=== PATIENT | male | born 1970 | race Caucasian/White ===

== ENCOUNTER 2024-09-07 23:50 | Inpatient (IN) | payer MEDICAID, SELFPAY ==
[2024-09-07 23:50] VITALS: BMI 19.2
[2024-09-08] VITALS (39 sets, daily range): BP systolic 112–158; BP diastolic 80–119; PULSE 77–127; RESP 12–98; TEMP 36.2–36.8; O2SAT 90–100
--- NOTE | 2024-09-08 00:13 | XR_ITS ---
Examination: PA chest single view Technique: Upright PA chest single view Exam date and time: September 08, 2024 1238 hrs. Indications: Shortness of breath today. Findings: Significant hyperexpansion Normal heart size Mild accentuation of bronchovascular markings Prominent central pulmonary arteries. No lobar pneumonia Impression: COPD Pulmonary artery hypertension. No lobar pneumonia
--- NOTE | 2024-09-08 00:13 | PD.EDRME ---
Rapid Medical Screening Exam RME Arrival date/time: 09/07/24 23:50 53M with history of smoking and HTN presents to ED with 1 day of CP and SOB. Chief Complaint: Chest Pain Vital signs: Vital Signs Temperature 98.3 F 09/08/24 00:07 Pulse Rate 110 H 09/08/24 00:07 Respiratory Rate 21 H 09/08/24 00:07 Blood Pressure 117/83 09/08/24 00:07 Pulse Oximetry (%) 94 L 09/08/24 00:07 Oxygen Delivery Method Room Air 09/08/24 00:07
[2024-09-08 00:37] LABS: Basophils % (Auto) 0 % (0-2.5); Eosinophils % (Auto) 0 % (0-10); Hematocrit 38.6 % (41.0-53.0); Hemoglobin 13.9 g/dL (13.5-16.0); Immature Granulocytes % (Auto) 0 % (0-0); Immature Granulocytes Auto 0.02 Thou/mm3 (0.00-0.00); Lymphocytes # (Auto) 2.1 Thou/mm3 (1.0-4.8); Lymphocytes % (Auto) 20 % (10-50); Mean Corpuscular Hemoglobin 29.5 pg (25.0-35.0); Mean Corpuscular Volume 82 fL (80-100); Monocytes % (Auto) 9 % (0-12); Neutrophils # (Auto) 7.6 Thou/mm3 (1.8-7.7); Neutrophils % (Auto) 71 % (37-80); Nucleated Red Blood Cell % 0 /100 WBC (0); Platelet Count 304 Thou/mm3 (140-440); RDW Standard Deviation 38.5 fL (35.1-43.9); Red Blood Count 4.71 Miln/mm3 (4.50-5.90); White Blood Count 10.7 Thou/mm3 (3.8-10.6)
[2024-09-08 01:01] LABS: Alanine Aminotransferase 24 U/L (10-49); Albumin, Serum 4.4 gm/dL (3.5-5.0); Albumin/Globulin Ratio 1.6 (1.2-2.2); Alkaline Phosphatase 93 U/L (46-116); Anion Gap 8 (7-16); Aspartate Amino Transferase 42 U/L (0-34); BUN/Creatinine Ratio 6 Ratio (12-20); Bilirubin,Total 0.4 mg/dL (0.3-1.2); Blood Urea Nitrogen < 5 mg/dL (9-23); Calcium 9.5 mg/dL (8.3-10.6); Calcium (Corrected) 9.5 mg/dL (8.5-10.1); Carbon Dioxide 28.7 mMol/L (20.0-31.0); Chloride 100 mMol/L (98-107); Creatinine (Component) 0.9 mg/dL (0.6-1.3); Estimated Creatinine Clearance 79.2 mL/min (>60); Globulin 2.7 gm/dL (2.3-3.5); Glucose 95 mg/dL (74-106); Magnesium 1.8 mg/dL (1.6-2.6); Osmolality,Calculated 271 (275-295); Sodium 137 mMol/L (136-145); Total Protein 7.1 gm/dL (5.7-8.2); Troponin I < 0.020 ng/mL (0.0-0.045); eGFR > 60 See Note
--- NOTE | 2024-09-08 01:06 | EDNOTE_ITS ---
ED Chest Pain RME/HPI General Chief Complaint: Chest Pain Stated Complaint: CHEST PAIN Time Seen by Provider: 09/08/24 01:04 Source: patient Arrival date/time: 09/07/24 23:50 Mode of arrival: ambulatory Limitations: no limitations RME / HPI RME / HPI narrative: 09/07/24 23:50 53M with history of smoking and HTN presents to ED with 1 day of CP and SOB. DR GOMEZ MAIN ED EVALUATION: 53-year-old male with a history of COPD, hypertension, tobacco and marijuana smoking, and a past history of skin cancer and melena who presented to the ER with chest pain. He describes the pain as heavy, pressure-like sensation, stating it feels like a person is standing on top of his chest with hot boots. He denies experiencing similar episodes in the past but reports shortness of breath at rest and with exertion. Over the past two months, the patient has noticed progressively worsening shortness of breath, which has significantly impacted his activity level. He, he reports flu-like symptoms that began one week ago, including fever, chills, cough, and voice loss, but denies diarrhea. He has used inhalers in the past but has not been compliant with his medications. His denies diabetes or prior heart attacks. Related Data Previous Rx's ?Medication ?Instructions ?Recorded albuterol sulfate 90 mcg/actuation 2 inh inhalation Q6 H PRN shortness 07/18/21 breath activated powder inhaler of breath or wheezing #1 ea cyclobenzaprine 10 mg tablet 10 mg PO TID PRN muscle s pasm #10 09/10/22 tabs hydrocodone 10 mg-acetaminophen 1 tab PO Q6H PRN pain #10 tabs 09/10/22 325 mg tablet ibuprofen 800 mg tablet 800 mg PO Q6H PRN pain #10 t abs 09/10/22 hydrocodone 5 mg-acetaminophen 325 1 tab PO TID PRN pa in #10 tabs 11/18/22 mg tablet pantoprazole 20 mg tablet,delayed 20 mg PO QDAY #30 ta bs 01/08/23 release (Protonix) acetaminophen 500 mg capsule 1,000 mg (2 x 500 mg) PO TID #30 01/19/23 caps Allergies Allergy/AdvReac Type Severity Reaction Status Date / Time No Known Allergies Allergy Verified 09/07/24 23:50 Review of Systems Review of Systems Systems Reviewed: All systems reviewed, normal except as documented Past Medical History Past Medical History NEUROLOGIC: Negative Cerebrovascular Accident or Alzheimer's Disease CARDIAC: Negative Cardiac Disorders, Myocardial Infarction or Angina RESPIRATORY: Negative Chronic Obstructive Pulmonary Disease (COPD), Asthma or Emphysema GASTROINTESTINAL: Negative Liver Cancer or Pancreatic Cancer GENITOURINARY: Negative Genitourinary Disorders or Renal Disease MUSCULOSKELETAL: Negative Muscular Dystrophy or Bone Cancer ENT: Negative Cataracts ENDOCRINE: Negative Endocrine Disorders, Diabetes Mellitus Type 1 or Diabetes Mellitus Type 2 HEMATOLOGIC: Negative Blood Disorders or Sickle Cell Disease OTHER HISTORY: Negative Down Syndrome or Developmental Delay Social History SMOKING STATUS: Current every day smoker SUBSTANCE USE: marijuana ED Exam Narrative Physical exam: GENERAL APPEARANCE: alert and oriented x 4, well-developed, well-nourished, no acute distress VITALS: All vitals were reviewed and the pulse ox is 94% on room air, which is normal according to my interpretation. HEENT: Normocephalic, atraumatic; pupils equal, round, reactive to light; EOMI; mucous membranes pink, moist; oropharynx clear NECK: Supple LUNGS: CTABL; no wheezes, no rales, no rhonchi HEART: Regular rate, regular rhythm; normal S1, S2; no murmurs ABDOMEN: non distended; normal BS; soft, no tenderness, no guarding, no rebound; no masses, no organomegaly, no hernia BACK: no CVA tenderness EXTREMITIES: atraumatic; no edema NEUROLOGIC: awake; alert and oriented x4; cranial nerves II-XII grossly intact; no focal sensory or motor deficits PSYCHIATRIC: appropriate mood and affect SKIN: warm, dry, normal color; no rashes General Limitations: Present no limitations Course Course Course Narrative: CXR is ordered for determining etiology of chest pain. Quality Measures none Orders Category Date Time Status [employer]er NOW Care 09/08/24 01:13 Active EKG (ED ONLY) *Do not use* NOW Care 09/07/24 23:52 Completed EKG (ED ONLY) *Do not use* NOW Care 09/08/24 01:[address] angio chest abdomen pelvis Stat Exams 09/08/24 02:20 Taken EKG (ED Only) Stat Exams 09/07/24 23:52 Ordered EKG (ED Only) Stat Exams 09/08/24 01:12 Draft XR chest 1V portable Stat Exams 09/08/24 00:13 Taken BNP [B-Type Natriuretic Peptide] Stat Lab 09/08/24 00:26 Completed CBC Stat Lab 09/08/24 00:26 Completed Comprehensive Metabolic Panel Stat Lab 09/08/24 00:26 Completed Drug Screen,Urine Stat Lab 09/08/24 05:09 Received Magnesium Stat Lab 09/08/24 00:26 Completed PT [Prothrombin Time with INR] Stat Lab 09/08/24 00:26 Completed PTT [Partial Thromboplastin Time] Stat Lab 09/08/24 00:26 Completed Troponin I Stat Lab 09/08/24 00:26 Completed Troponin I Stat Lab 09/08/24 02:53 Completed Aspirin Chew Med 09/08/24 01:12 Discontinued 324 mg PO X1 ONE KCL 10% Liq UDC 15 ML Med 09/08/24 01:04 Discontinued 40 meq PO X1 ONE Morphine Inj Med 09/08/24 01:16 Discontinued 2 mg IVP X1 ONE Morphine Inj Med 09/08/24 02:11 Discontinued 5 mg IVP X1 ONE Nitroglycerin [Nitrostat 1/150] Med 09/08/24 01:12 Active 0.4 mg SL Q5MIN PRN Ondansetron Inj [Zofran Inj] Med 09/08/24 01:16 Discontinued 4 mg IV X1 ONE Oxygen Delivery NOW RT 09/08/24 01:13 Active Vital Signs Vital signs: Vital Signs Temperature 98.3 F 09/08/24 00:07 Pulse Rate 110 H 09/08/24 00:07 Respiratory Rate 21 H 09/08/24 00:07 Blood Pressure 117/83 09/08/24 00:07 Pulse Oximetry (%) 94 L 09/08/24 00:07 Oxygen Delivery Method Room Air 09/08/24 00:07 Procedures -ED Procedure Comment EKG manual reading, 09/08/24 0006, my interpretation: afib, rate: 98 bpm, no ST elevation, no acute ischemic changes Chest Pain MDM Narrative MDM Narrative:: Scribe Attestation: I, Dax Guy, am scribing for and in the presence of Dr. Gomez. Provider Notation: Although this document has been carefully reviewed, there may still be some phonetic and other typographical errors. These errors are purely grammatical due to imperfections in the software program and should not be construed in any way to compromise the substance of the patient's medical care during this visit. Patient data External records reviewed:: [facility] previous records Clinical information provided by:: patient Social determinants that could affect healthcare access:: none Patient has the following chronic illnesses:: see PMH How is presenting disease/condition affected by chronic disease/condition?: uneffected by Evaluation data The following diagnostics were reviewed and interpreted by me:: lab results, radiology exam(s) and EKG tracing(s) Lab and/or radiology exams considered but not ordered:: na Interpretation Summary: CT angiogram of the chest, abdomen and pelvis with intravenous contrast (axial sections with sagittal and coronal reformats) September 08, 2024 at 0330 hours Clinical History: chest pain Comparison: No prior study is available for comparison. Findings: There is no filling defect in the pulmonary artery divisions to suggest pulmonary thromboembolism. No pericardial effusion is seen. No pleural effusion. The heart size is normal. Main pulmonary artery caliber is normal. There is no mediastinal, hilar or axillary adenopathy. No aortic aneurysm or dissection. No pneumothorax. No acute osseous process. The chest wall is unremarkable. Patchy bilateral pulmonary infiltrates. Liver, gallbladder, pancreas , spleen, adrenal glands and kidneys are unremarkable. Stomach is decompressed. Cannot exclude gastric wall thickening. The urinary bladder is normal. No free intraperitoneal air or fluid. The appendix is normal, best seen on image 252. Bowel caliber is normal. Celiac, superior and inferior mesenteric, bilateral renal and iliac arteries are unremarkable. No acute osseous process. Impression: 1. No evidence of pulmonary thromboembolism. 2. No aortic aneurysm or dissection. 3. Bilateral pneumonia. 4. Recommend clinical correlation to exclude gastritis. 5. No definite acute process in the abdomen or pelvis. Report Electronically Signed By: Gorge Kang 09/08/2024 4:48:28 AM [EST] Medications / Prescriptions Medications or Prescriptions considered but not ordered:: na Medication administrations:: Medication Administration History Acetaminophen (Acetaminophen 325 Mg Tablet) 650 mg PO Q6H PRN PRN Reason: Fever >101.5 Stop: 10/08/24 04:03 Albuterol/Ipratropium (Albuterol/Ipratropium (Duoneb) Rt Breanna 3 Ml Nebu) 3 ml INH Q6HRRT TASH Stop: 10/08/24 06:59 Enoxaparin Sodium (Enoxaparin Sod Inj 40 Mg/0.4 Ml Syringe) 40 mg SC QDAY [facility] Stop: 09/22/24 08:59 Sodium Chloride (Ns) 1,000 mls @ 75 mls/hr IV .[id number] [facility] Stop: 10/08/24 04:14 Last Admin: 09/08/24 05:11 Dose: 75 mls/hr Documented By: NALINI Ceftriaxone Sodium 1,000 mg/ (Sodium Chloride) 50 mls @ 100 mls/hr IV QDAY [facility] Stop: 09/15/24 04:34 Azithromycin 500 mg/ Sodium (Chloride) 250 mls @ 250 mls/hr IV QDAY [facility] Stop: 09/11/24 04:35 Methylprednisolone Sodium Succinate (Methylprednisolone Sod Succ 62.5 Mg/Ml 2ml Vial) 40 mg IVP QDAY [facility] Stop: 09/15/24 08:59 Nitroglycerin (Nitroglycerin 0.4 Mg Subl Btl #25) 0.4 mg SL Q5MIN PRN PRN Reason: CHEST PAIN Stop: 10/08/24 01:11 Last Admin: 09/08/24 02:03 Dose: 0.4 mg Documented By: Admin: 09/08/24 01:32 Dose: 0.4 mg Documented By: GEETA Pantoprazole Sodium (Pantoprazole 40 Mg Tablet) 40 mg PO QDAY [facility] Stop: 10/08/24 08:59 Discontinued Medications Aspirin (Aspirin 81 Mg Chew) 324 mg PO X1 ONE Stop: 09/08/24 01:13 Last Admin: 09/08/24 01:23 Dose: 324 mg Documented By: GEETA Ceftriaxone Sodium 1,000 mg/ (Lidocaine HCl 2.1 ml) 0 mg IV X1 ONE Stop: 09/08/24 05:23 Ceftriaxone Sodium 1,000 mg/ (Sodium Chloride) 50 mls @ 100 mls/hr IV X1 ONE Stop: 09/08/24 05:14 Last Admin: 09/08/24 05:22 Dose: Not Given Documented By: NALINI Non-Admin Reason: Medication Not Available Azithromycin 500 mg/ Sodium (Chloride) 250 mls @ 250 mls/hr IV X1 ONE Stop: 09/08/24 05:44 Last Admin: 09/08/24 05:11 Dose: 250 mls/hr Documented By: NALINI Ceftriaxone Sodium 1,000 mg/ (Sodium Chloride) 50 mls @ 100 mls/hr IV X1 ONE Stop: 09/08/24 05:45 Last Admin: 09/08/24 05:23 Dose: Not Given Documented By: NALINI Non-Admin Reason: Medication Not Available Morphine Sulfate (Morphine Sulf Inj 10 Mg/Ml Vial) 2 mg IVP X1 ONE Stop: 09/08/24 01:17 Last Admin: 09/08/24 01:23 Dose: 2 mg Documented By: GEETA Morphine Sulfate (Morphine Sulf Inj 10 Mg/Ml Vial) 5 mg IVP X1 ONE Stop: 09/08/24 02:12 Last Admin: 09/08/24 02:33 Dose: 5 mg Documented By: NALINI Nicotine (Nicotine Patch 14 Mg/24 Hr Patch.Td24) 14 mg TOP X1 ONE Stop: 09/08/24 05:00 Ondansetron HCl (Ondansetron Inj 2 Mg/Ml Inj 2 Ml) 4 mg IV X1 ONE Stop: 09/08/24 01:17 Last Admin: 09/08/24 01:24 Dose: 4 mg Documented By: GEETA Potassium Chloride (Potassium Chloride 10% 20 Meq/15 Ml Udc) 40 meq PO X1 ONE Stop: 09/08/24 01:05 Last Admin: 09/08/24 01:23 Dose: 40 meq Documented By: GEETA as above Consultations Consultation(s) initiated? (list below): Yes Consultation #1 (Physician, Specialty, Details): Dr. Easton made aware of the patient?s HPI, PMHx, lab and/or radiology results. Treatment plan was discussed. Accepts patient for admission. Diagnosis Chest Pain Differential Diagnosis: atypical chest pain, st elevation myocardial infarction, costochondritis, chest pain and biliary colic Most likely diagnosis given after review of the tests above:: Chest pain Admission Indicated Admission indicated?: indicated Admission Request Was there a request for admission?: Yes Admission Attestation Admission request attestation: Discussed case with [] from Hospitalist service regarding admission. Discussed patients ED course, exam findings, labs, and radiology results. The Hospitalist [agrees,declines] to accept the patient for admission. Disposition Plan Disposition Plan: Admit Discharge Plan Plan Patient Disposition: Admit Acute Care w/in Hospital Problem List Clinical Impression: Chest pain
--- NOTE | 2024-09-08 01:12 | EKG_ITS ---
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: : 1970 Requested By: Mireya Ingram Order Number: [id number] Reading MD: Mireya Ingram Measurements Intervals [place] Rate: 98 P: MT: QRS: -84 QRSD: 96 T: -40 QT: 389 QTc: 499 Interpretive Statements ATRIAL FIBRILLATION MARKED LEFT AXIS DEVIATION [QRS AXIS < -30] INCOMPLETE RIGHT BUNDLE BRANCH BLOCK [90+ ms QRS DURATION, TERMINAL R IN V1/V2, 40+ ms S IN I/aVL/V4/V5/V6] MODERATE ST DEPRESSION [0.05+ mV ST DEPRESSION] Compared to ECG 07/18/2021 12:39:58 Left-axis deviation now present Incomplete right bundle-branch block now present ST (T wave) deviation now present Sinus tachycardia no longer present Atrial abnormality no longer present Right-axis deviation no longer present Myocardial infarct finding no longer present /store/S0/[id number]/ecg/[id number].pdf
[2024-09-08] MEDS: MORPHINE SULF INJ 10 MG/ML VIAL 2 MG IVP (01:23)
[2024-09-08] MEDS: POTASSIUM CHLORIDE 10% 20 MEQ/15 ML UDC 40 MEQ PO (01:23)
[2024-09-08] MEDS: ASPIRIN 81 MG CHEW 324 MG PO (01:23)
[2024-09-08] MEDS: ONDANSETRON INJ 2 MG/ML INJ 2 ML 4 MG IV (01:24)
[2024-09-08] MEDS: NITROGLYCERIN 0.4 MG SUBL BTL #25 SL ×2 (01:32→02:03)
--- NOTE | 2024-09-08 02:20 | XR_ITS ---
Examination: CTA chest, with intravenous contrast. CTA abdomen, with intravenous contrast. CTA pelvis, with intravenous contrast. 2-D sagittal and coronal reconstructions. 3-D reconstructions. Date and time of exam: September 08, 2024 at 0332 hrs. Indications: Onset chest and abdominal pain today CTDI vol (mgy) 6.7 DLP (MGycm) 429 Technique: Multiple CTA images, 2.0 mm slice thickness, obtained chest, abdomen, pelvis, with the high-resolution 64 slice scanner. 100 cc Isovue-370 is administered intravenously. Sagittal and coronal 2-D reconstructions are obtained. 3-D reconstructions, angiographic images are obtained. 3-D postprocessing, including vascular maximum intensity projections. Low dose protocols were performed. One or more of the following dose reduction techniques were used; automated exposure control, adjustment of the mA and/or KV according to patient size, use of iterative reconstruction technique. Findings: No thoracic aortic aneurysm dilatation or dissection Pulmonary artery segments are not enlarged No pulmonary artery emboli Small preaortic aorta pulmonary window lymph nodes Mild hilar lymphadenopathy Soft nodular opacities in both lung Mildly dilated bronchi in the left lower lobe No focal liver or splenic lesions No gallstones No pancreatic mass Abdominal aorta is not enlarged No hydronephrosis renal or ureteral calculi No bowel obstruction Normal appendix No diverticulitis Possible TURP defect Minimal thickening of urinary bladder wall up to 3 mm Impression: Negative for pulmonary artery emboli Mild hilar lymphadenopathy Soft opacities in both lungs consistent with pneumonia Mild bronchiectasis left lower lobe No acute process in the abdomen or pelvis
[2024-09-08 02:29] LABS: INR 1.1 (0.9-1.3); Partial Thromboplastin Time 31.9 Seconds (22.0-36.0); Prothrombin Time 11.7 Seconds (9.0-12.2)
[2024-09-08] MEDS: MORPHINE SULF INJ 10 MG/ML VIAL 5 MG IVP (02:33)
[2024-09-08 02:54] LABS: B-Type Natriuretic Peptide 23 pg/mL (0-100)
[2024-09-08 03:36] LABS: Troponin I < 0.020 ng/mL (0.0-0.045)
--- NOTE | 2024-09-08 04:11 | PD.EVENT ---
Documentation for date of: 09/08/24 Event Note Event Note: A 53-year-old male presented to the ER with chest pain. The patient reports experiencing chest pain along with fever, chills, and cold symptoms one week ago, accompanied by cough, difficulty breathing, and voice loss. He denies diarrhea. The patient has a history of hypertension, COPD, and hyperlipidemia. He denies diabetes or prior heart attacks. His surgical history includes back surgery. Social history is notable for smoking at a rate of half a pack per day and marijuana use. He denies alcohol use. In the Emergency Department, the patient was initially evaluated with vital signs showing a temperature of 98.3?F, heart rate of 110 bpm, respiratory rate of 21 breaths per minute, blood pressure of 117/83 mmHg, and oxygen saturation of 94% on room air. Laboratory results showed a WBC of 10.7, hemoglobin of 13.9, platelets of 304, sodium of 137, potassium of 3, BUN <5, creatinine of 0.9, and troponin <0.02. EKG revealed atrial fibrillation. CTA 1. No evidence of pulmonary thromboembolism. 2. No aortic aneurysm or dissection. 3. Bilateral pneumonia. The patient was admitted for further evaluation of chest pain to rule out acute coronary syndrome, bilateral pneumonia and atrial fibrillation management.
--- NOTE | 2024-09-08 04:42 | PD.RESHP ---
Documentation for date of: 09/08/24 [facility] History of Present Illness History of present illness: Patient is a 53-year-old male past medical history pertinent for COPD, hypertension, tobacco and marijuana smoking, history of skin cancer, remote history of melena, who presented to the ER complaining of chest pain, patient describes chest heaviness and pressure-like symptoms, feels like a person is standing on top of his chest with hot boots . Patient denied any similar episodes in the past, endorses shortness of breath, at rest and exertion. Reported that he has been having progressively worsening shortness of breath for the past 2 months, previously he was able to ride his bicycle for extended period without getting short of breath and now even walking or riding his bike for a short distance makes him gasping for air. Patient also endorsed recent history of flulike symptoms which started 1 week ago, patient has a diagnosis of COPD and used inhalers in the past, but currently is noncompliant with medications. In the ED, patient was noted to have vital signs indicate a temperature of 98.3?F, heart rate of 110 beats per minute, respiratory rate of 21 breaths per minute, blood pressure of 117/83 mmHg, and an oxygen saturation level of 94% while breathing room air. Laboratory results show a white blood cell count of 10.7, hemoglobin of 13.9, platelets of 304, sodium level of 137, potassium of 3, BUN less than 5, creatinine of 0.9, and troponin level below 0.02. EKG was reported as atrial fibrillation, but per my interpretation no evidence of A-fib, likely multifocal atrial tachycardia. CTPA was done, pending read. Past medical history: COPD, hypertension, hyperlipidemia, remote history of melanotic stools/GI bleed Past surgical history: History of back surgery, knee surgery, excision of skin cancer. Social history: Denies alcohol use, endorses half a pack of cigarettes daily and marijuana. Remote history of methamphetamine use many years ago. Family history: Endorses history of cancer in the family. Past Medical History Past Medical History NEUROLOGIC: Negative Cerebrovascular Accident or Alzheimer's Disease CARDIAC: Positive Cardiac Disorders and Hypertension; Negative Myocardial Infarction, Angina or Congestive Heart Failure RESPIRATORY: Negative Chronic Obstructive Pulmonary Disease (COPD), Asthma or Emphysema GASTROINTESTINAL: Negative Liver Cancer or Pancreatic Cancer GENITOURINARY: Negative Genitourinary Disorders or Renal Disease MUSCULOSKELETAL: Negative Muscular Dystrophy or Bone Cancer ENT: Negative Cataracts ENDOCRINE: Negative Endocrine Disorders, Diabetes Mellitus Type 1 or Diabetes Mellitus Type 2 HEMATOLOGIC: Negative Blood Disorders or Sickle Cell Disease OTHER HISTORY: Negative Down Syndrome or Developmental Delay Social History SMOKING STATUS: Current every day smoker SUBSTANCE USE: marijuana Exam Vital Signs Temp Pulse Resp BP Pulse Ox O2 Del Method 98.3 F 117 H 14 144/109 H 96 Room Air 09/08/24 00:07 09/08/24 03:00 09/08/24 03:00 09/08/24 03:00 09/08/24 03:00 09/08/24 01:25 Narrative Exam General: AOx3, cooperative, in mild distress Skin: Intact, no cyanosis or edema noted. HEENT: Atraumatic/normocephalic, KEILA, neck supple Heart: RRR, S1 and S2 without clicks or murmurs Lungs: Bilateral wheezing on auscultation Abdomen: Soft, nontender. Bowel sounds present . Vascular: Peripheral pulses palpable Neuro: No focal neurological deficits noted. Results: Labs 09/08/24 04:47 09/08/24 04:47 Labs: Short CBC 09/08/24 Range/Units 00:26 WBC 10.7 H (3.8-10.6) Thou/mm3 Hgb 13.9 (13.5-16.0) g/dL Hct 38.6 L (41.0-53.0) % Plt Count 304 (140-440) Thou/mm3 BMP 09/08/24 00:26 Sodium 137 Potassium 3.0 L Chloride 100 Carbon Dioxide 28.7 BUN < 5 L Creatinine 0.9 Glucose 95 Calcium 9.5 Cardiac Enzymes 09/08/24 09/08/24 Range/Units 00:26 02:53 Troponin I < 0.020 < 0.020 (0.0-0.045) ng/mL Liver Function 09/08/24 Range/Units 00:26 Total Bilirubin 0.4 (0.3-1.2) mg/dL AST 42 H (0-34) U/L ALT 24 (10-49) U/L Alkaline Phosphatase 93 (46-116) U/L Albumin 4.4 (3.5-5.0) gm/dL Quality Measures Quality Measures none Medications Home Medications and Allergies Allergies Allergy/AdvReac Type Severity Reaction Status Date / Time No Known Allergies Allergy Verified 02/22/25 23:50 Visit Medications Acetaminophen (Acetaminophen 325 Mg Tablet) 650 mg PO Q6H PRN PRN Reason: Fever >101.5 Stop: 10/08/24 04:03 Albuterol/Ipratropium (Albuterol/Ipratropium (Duoneb) Rt Breanna 3 Ml Nebu) 3 ml INH Q6HRRT [facility] Stop: 10/08/24 06:59 Enoxaparin Sodium (Enoxaparin Sod Inj 40 Mg/0.4 Ml Syringe) 40 mg SC QDAY [facility] Stop: 09/22/24 08:59 Sodium Chloride (Ns) 1,000 mls @ 75 mls/hr IV .[id number] [facility] Stop: 10/08/24 04:14 Ceftriaxone Sodium 1,000 mg/ (Sodium Chloride) 50 mls @ 100 mls/hr IV QDAY [facility] Stop: 09/15/24 04:34 Azithromycin 500 mg/ Sodium (Chloride) 250 mls @ 250 mls/hr IV QDAY [facility] Stop: 09/11/24 04:35 Methylprednisolone Sodium Succinate (Methylprednisolone Sod Succ 62.5 Mg/Ml 2ml Vial) 40 mg IVP QDAY [facility] Stop: 09/15/24 08:59 Nitroglycerin (Nitroglycerin 0.4 Mg Subl Btl #25) 0.4 mg SL Q5MIN PRN PRN Reason: CHEST PAIN Stop: 10/08/24 01:11 Last Admin: 09/08/24 02:03 Dose: 0.4 mg Discontinued Medications Aspirin (Aspirin 81 Mg Chew) 324 mg PO X1 ONE Stop: 09/08/24 01:13 Last Admin: 09/08/24 01:23 Dose: 324 mg Morphine Sulfate (Morphine Sulf Inj 10 Mg/Ml Vial) 2 mg IVP X1 ONE Stop: 09/08/24 01:17 Last Admin: 09/08/24 01:23 Dose: 2 mg Morphine Sulfate (Morphine Sulf Inj 10 Mg/Ml Vial) 5 mg IVP X1 ONE Stop: 09/08/24 02:12 Last Admin: 09/08/24 02:33 Dose: 5 mg Ondansetron HCl (Ondansetron Inj 2 Mg/Ml Inj 2 Ml) 4 mg IV X1 ONE Stop: 09/08/24 01:17 Last Admin: 09/08/24 01:24 Dose: 4 mg Potassium Chloride (Potassium Chloride 10% 20 Meq/15 Ml Udc) 40 meq PO X1 ONE Stop: 09/08/24 01:05 Last Admin: 09/08/24 01:23 Dose: 40 meq Assessment & Plan Plan Patient is a 53-year-old male past medical history pertinent for COPD, hypertension, tobacco and marijuana smoking, history of skin cancer, remote history of melena, who presented to the ER complaining of chest pain, patient describes chest heaviness and pressure-like symptoms, feels like a person is standing on top of his chest with hot boots . Patient denied any similar episodes in the past, endorses shortness of breath, at rest and exertion. Reported that he has been having progressively worsening shortness of breath for the past 2 months, previously he was able to ride his bicycle for extended period without getting short of breath and now even walking or riding his bike for a short distance makes him gasping for air. Patient also endorsed recent history of flulike symptoms which started 1 week ago, patient has a diagnosis of COPD and used inhalers in the past, but currently is noncompliant with medications. In the ED, patient was noted to have vital signs indicate a temperature of 98.3?F, heart rate of 110 beats per minute, respiratory rate of 21 breaths per minute, blood pressure of 117/83 mmHg, and an oxygen saturation level of 94% while breathing room air. Laboratory results show a white blood cell count of 10.7, hemoglobin of 13.9, platelets of 304, sodium level of 137, potassium of 3, BUN less than 5, creatinine of 0.9, and troponin level below 0.02. EKG was reported as atrial fibrillation, but per my interpretation no evidence of A-fib, likely multifocal atrial tachycardia. CTPA was done, pending read. Past medical history: COPD, hypertension, hyperlipidemia, remote history of melanotic stools/GI bleed Past surgical history: History of back surgery, knee surgery, excision of skin cancer. Social history: Denies alcohol use, endorses half a pack of cigarettes daily and marijuana. Remote history of methamphetamine use many years ago. Family history: Endorses history of cancer in the family. #Chest pain Presented with chest pain starting today, negative troponin x 2 in the ER, the character of chest pain is very typical of cardiac event, but chest pain not responded to nitroglycerin, patient received morphine in the ER, states chest pain was initially 10/10 now its 8/10 after receiving IV morphine. Associated with worsening shortness of breath, no pneumothorax on chest imaging. EKG negative for acute ST segment changes, does show T wave inversion in inferior leads. Visible P wave preceding QRS complexes, likely MAT. Differential diagnosis include: NSTEMI versus pulmonary embolism versus pneumothorax versus costochondritis versus GERD. ? Follow repeat troponins ? Cardiology consulted Dr. Stoddard ? Holding off on IV anticoagulation for now as negative troponins and prior history of GI bleed, will await cardio recommendations before considering heparin drip. ? Echocardiogram is ordered ? Follow CT angiogram report #COPD exacerbation #Pneumonia History of progressively worsening shortness of breath for the past 2 months, currently seen on 2 L nasal cannula oxygen, also reported flulike illness 1 week ago which exacerbated patient's symptoms, history of using inhalers but is noncompliant medications. Bilateral wheezing on auscultation. ? IV methylprednisone 40 mg daily ? DuoNebs as needed ? IV ceftriaxone and azithromycin for COPD exacerbation ? Follow-up bedside COVID and influenza testing ? Holding off on sputum or blood cultures for now as patient does not meet criteria for sepsis at this moment. Consider adding cultures if indicated. #History of hypertension Reported he was prescribed blood pressure medications recently, but noncompliant with meds now, currently blood pressure in the 140s systolic. ? Consider resuming home medications, pending med rec reconciliation #History of substance abuse current tobacco and marijuana smoker, remote history of methamphetamine ? NicoDerm patch Disposition: Telemetry admit DVT prophylaxis: Lovenox GI prophylaxis: Protonix Diet: Cardiac Lines: PIV CODE STATUS: Full The plan of care was discussed with my attending physician MD Chacha Colbert MD PGY2 This document was completed utilizing speech recognition software. Grammatical errors, random word insertions, pronoun errors, and incomplete sentences are an occasional consequence of this system due to software limitations, ambient noise, and hardware issues. Any formal questions or concerns about the content, text or information contained within the body of this dictation should be directly addressed to the provider for clarification. Attending Provider Attestation/Addendum Pt was evaluated and plan formulated together with the housestaff team. I have reviewed the residents note above and agree with most of its content. Please refer to the residents note for additional details.
--- NOTE | 2024-09-08 04:48 | PRELIM_ITS ---
CT angiogram of the chest, abdomen and pelvis with intravenous contrast (axial sections with sagittal and coronal reformats) September 08, 2024 at 0330 hours Clinical History: chest pain Comparison: No prior study is available for comparison. Findings: There is no filling defect in the pulmonary artery divisions to suggest pulmonary thromboembolism. No pericardial effusion is seen. No pleural effusion. The heart size is normal. Main pulmonary artery caliber is normal. There is no mediastinal, hilar or axillary adenopathy. No aortic aneurysm or di ssection. No pneumothorax. No acute osseous process. The chest wall is unremarkable. Patchy bilateral pulmonary infiltrates. Liver, gallbladder, pancreas , spleen, adrenal glands and kidneys are unremarkable. Stomach is decompressed. Cannot exclude gastric wall thickening. The urinary bladder is normal. No free intraperitoneal air or fluid. The appendix is normal, best seen on image 252. Bowel caliber is normal. Celiac, superior and inferior mesenteric, bilateral renal and iliac arteries are unremarkable. No acute osseous process. Impression: 1. No evidence of pulmonary thromboembolism. 2. No aortic aneurysm or dissection. 3. Bilateral pneumonia. 4. Recommend clinical correlation to exclude gastritis. 5. No definite acute process in the abdomen or pelvis. Report Electronically Signed By: Gorge Kang 09/08/2024 4:48:28 AM [EST]
[2024-09-08 04:58] LABS: Basophils % (Auto) 0 % (0-2.5); Eosinophils % (Auto) 0 % (0-10); Hematocrit 35.3 % (41.0-53.0); Hemoglobin 12.7 g/dL (13.5-16.0); Immature Granulocytes % (Auto) 0 % (0-0); Immature Granulocytes Auto 0.03 Thou/mm3 (0.00-0.00); Lymphocytes # (Auto) 1.8 Thou/mm3 (1.0-4.8); Lymphocytes % (Auto) 17 % (10-50); Mean Corpuscular Hemoglobin 29.8 pg (25.0-35.0); Mean Corpuscular Volume 83 fL (80-100); Monocytes % (Auto) 10 % (0-12); Neutrophils # (Auto) 7.4 Thou/mm3 (1.8-7.7); Neutrophils % (Auto) 72 % (37-80); Nucleated Red Blood Cell % 0 /100 WBC (0); Platelet Count 278 Thou/mm3 (140-440); RDW Standard Deviation 39.3 fL (35.1-43.9); Red Blood Count 4.26 Miln/mm3 (4.50-5.90); White Blood Count 10.2 Thou/mm3 (3.8-10.6)
[2024-09-08] MEDS: AZITHROMYCIN INJ 500 MG in SODIUM CHLORIDE 0.9% 250 ML 250 ML 250 MG IV (05:11)
[2024-09-08] MEDS: SODIUM CHLORIDE 0.9% 1000 ML 1,000 ML 75 ML IV ×2 (05:11→18:36)
[2024-09-08 05:54] LABS: Anion Gap 8 (7-16); BUN/Creatinine Ratio 6 Ratio (12-20); Blood Urea Nitrogen < 5 mg/dL (9-23); Carbon Dioxide 27.9 mMol/L (20.0-31.0); Chloride 103 mMol/L (98-107); Creatinine (Component) 0.9 mg/dL (0.6-1.3); Estimated Creatinine Clearance 79.2 mL/min (>60); Free T4 (Free Thyroxine) 1.24 ng/dL (0.89-1.76); Glucose 94 mg/dL (74-106); Osmolality,Calculated 274 (275-295); Potassium 3.1 mMol/L (3.4-5.1); Procalcitonin 0.12 ng/ml (0.0-0.49); Sodium 139 mMol/L (136-145); Thyroid Stimulating Hormone 0.82 uIU/mL (0.55-4.78); Troponin I < 0.020 ng/mL (0.0-0.045); eGFR > 60 See Note
[2024-09-08 07:03] LABS: Amphetamine/Methamp Scrn,U Positive (Negative); Barbiturate Screen,Urine Negative (Negative); Benzodiazepines Screen,Urine Negative (Negative); Benzoylecgonine Screen, Ur Negative (Negative); Fentanyl Screen,Urine Negative (Negative); Opiate Screen,Urine Positive (Negative); THC Screen,Urine Positive (Negative)
[2024-09-08] MEDS: ALBUTEROL/IPRATROPIUM (Duoneb) RT SOL 3 ML NEBU INH ×3 (07:50→18:46)
[2024-09-08] MEDS: NICOTINE PATCH 14 MG/24 HR PATCH.TD24 TOP (08:12)
[2024-09-08] MEDS: MethylPREDNISolone SOD SUCC 62.5 MG/ML 2ML VIAL 40 MG IVP (08:13)
[2024-09-08] MEDS: PANTOPRAZOLE 40 MG TABLET PO (08:16)
[2024-09-08] MEDS: ENOXAPARIN SOD INJ 40 MG/0.4 ML SYRINGE SC (08:19)
[2024-09-08] MEDS: cefTRIAXone 1,000 MG in SODIUM CHLORIDE 0.9% (Popper) 50 ML 100 MG IV (08:19)
--- NOTE | 2024-09-08 09:15 | PD.IMCONS ---
HPI Data of Consult Requesting Physician: Martin Easton MD Primary Care Provider: Physician No Primary/Family Consult Narrative History of present illness: This is a 53-year-old male past medical history pertinent for COPD, hypertension, tobacco and marijuana smoking, history of skin cancer, remote history of melena, patient seen in the ER with chest pain, some sob no prior cardiac history EKG unremarkable ; troponin negative cc:: cc: Martin Easton MD Meds Home Medications and Allergies Allergies Allergy/AdvReac Type Severity Reaction Status Date / Time No Known Allergies Allergy Verified 09/07/24 23:50 Exam Vital Signs Temp Pulse Resp BP Pulse Ox O2 Del Method O2 Flow Rate 97.8 F 78 19 152/102 H 100 Nasal Cannula 1 09/08/24 07:23 09/08/24 07:51 09/08/24 07:51 09/08/24 07:23 09/08/24 07:51 09/08/24 07:23 09/08/24 07:51 Routine HEENT Exam Head: Present normocephalic and atraumatic Eye: Present EOMI and PERRL ENT: Present mucous membranes moist Routine Neck Exam Neck: Present supple and trachea midline Routine Respiratory Exam Respiratory: Present chest non-tender, lungs clear, normal breath sounds and no resp distress Routine Cardiovascular Exam Cardiovascular: Present RRR Routine Abdominal Exam Abdominal: Present soft and normoactive bowel sounds Routine Extremities Exam Extremities: Present full ROM Routine Skin Exam Skin: Present intact, dry and warm Routine Neurological Exam Neurological: Present alert, oriented X3 and CN II-XII intact Routine Psychiatric Exam Psychiatric: Present normal affect and normal thought process Results Labs 09/08/24 04:47 09/08/24 04:47 Labs: Short CBC 09/08/24 09/08/24 Range/Units 00:26 04:47 WBC 10.7 H 10.2 (3.8-10.6) Thou/mm3 Hgb 13.9 12.7 L (13.5-16.0) g/dL Hct 38.6 L 35.3 L (41.0-53.0) % Plt Count 304 278 (140-440) Thou/mm3 BMP 09/08/24 09/08/24 00:26 04:47 Sodium 137 139 Potassium 3.0 L 3.1 L Chloride 100 103 Carbon Dioxide 28.7 27.9 BUN < 5 L < 5 L Creatinine 0.9 0.9 Glucose 95 94 Calcium 9.5 9.0 Cardiac Enzymes 09/08/24 09/08/24 09/08/24 Range/Units 00:26 02:53 04:47 Troponin I < 0.020 < 0.020 < 0.020 (0.0-0.045) ng/mL Liver Function 09/08/24 Range/Units 00:26 Total Bilirubin 0.4 (0.3-1.2) mg/dL AST 42 H (0-34) U/L ALT 24 (10-49) U/L Alkaline Phosphatase 93 (46-116) U/L Albumin 4.4 (3.5-5.0) gm/dL Assessment and Plan Assessment and plan (1) Chest pain: Status: Acute (2) HTN (hypertension): Status: Acute (3) Tobacco abuse: Status: Acute Additional Assessment & Plan Additional Plan: pt chest pain atypical EKG unremarkable troponin negative f/u echo
[2024-09-08] MEDS: Magnesium Sulfate 2 GM Ivpb 2 GM/50 ML BAG IV (09:39)
[2024-09-08] MEDS: POTASSIUM CHLORIDE 20 mEq TABCR 40 MEQ PO (09:39)
[2024-09-08] MEDS: INFLUENZA VIRUS QUADRIVALENT 0.5 ML SYRINGE IMi (09:40)
[2024-09-08 10:30] LABS: Troponin I < 0.020 ng/mL (0.0-0.045)
--- NOTE | 2024-09-08 12:43 | PD.RESPRO ---
Documentation for date of: 09/08/24 Subjective Subjective Interval history: Patient was seen at bedside this morning. No overnight events. Patient admitted to using meth around 2 or 3 days prior to admission. He also mentioned that his chest pain was constant and that he was resting when the chest pain came on he also mentioned that sometimes when he is walking or if he exerts himself he would get some chest pressure/pain. Spoke with shear setter who stated that we will get the echo for now. Patient had no other complaints at this time. There was still some wheezing on physical examination so we will continue with steroids for now. Exam Vital Signs Temp Pulse Resp BP Pulse Ox O2 Del Method O2 Flow Rate 97.4 F 77 18 136/97 H 94 L Room Air 1 09/08/24 12:00 09/08/24 12:00 09/08/24 12:00 09/08/24 12:00 09/08/24 12:00 09/08/24 12:00 09/08/24 07:51 Narrative Exam General: A/O x3, no acute distress, anxious Eyes: PERRL, EOMI. Anicteric, vision grossly intact. Ears: No ear pain, no ear discharge, Hearing grossly intact. Nose: No nasal discharge. Mouth/Throat: Dry mucous membranes, no redness, no lesions. Neck: Neck supple, non-tender, no cervical lymphadenopathy. Lungs: Wheezing TATIANA, No accessory muscle use. Cardio: Normal S1/S2, regular rhythm, no murmurs, no JVD Abdomen: Soft, non-tender, no palpable masses, peristalsis present, no guarding or rebound. Extremities: Symmetrical, no significant deformities, no peripheral edema , non-tender, peripheral pulses presents. Skin: No rashes, no lesions, warm to touch. Neuro: No focal neurological deficits. motor and sensory intact Psych: Anxious appearing Objective Labs 09/08/24 04:47 09/08/24 04:47 Labs: Laboratory Results - last 24 hr 09/08/24 09/08/24 09/08/24 00:26 02:53 04:47 WBC 10.7 H 10.2 RBC 4.71 4.26 L Hgb 13.9 12.7 L Hct 38.6 L 35.3 L MCV 82 83 MCH 29.5 29.8 MCHC 36.0 36.0 RDW Std Deviation 38.5 39.3 Plt Count 304 278 Neut % (Auto) 71 72 Lymph % (Auto) 20 17 [place] % (Auto) 9 10 Eos % (Auto) 0 0 Baso % (Auto) 0 0 Neut # (Auto) 7.6 7.4 Lymph # (Auto) 2.1 1.8 [place] # (Auto) 1.0 H 1.0 H Eos # (Auto) 0.0 0.0 Baso # (Auto) 0.0 0.0 Immature Gran # (Auto) 0.02 H 0.03 H Absolute Nucleated RBC 0.00 0.00 Immature Gran % 0 0 Nucleated RBC % 0 0 PT 11.7 INR 1.1 APTT 31.9 Sodium 137 139 Potassium 3.0 L 3.1 L Chloride 100 103 Carbon Dioxide 28.7 27.9 Anion Gap 8 8 BUN < 5 L < 5 L Creatinine 0.9 0.9 Estim Creat Clear Calc 79.2 79.2 eGFR > 60 > 60 BUN/Creatinine Ratio 6 L 6 L Glucose 95 94 Calculated Osmolality 271 L 274 L Calcium 9.5 9.0 Corrected Calcium 9.5 Magnesium 1.8 Total Bilirubin 0.4 AST 42 H ALT 24 Alkaline Phosphatase 93 Troponin I < 0.020 < 0.020 < 0.020 B-Natriuretic Peptide 23 Total Protein 7.1 Albumin 4.4 Globulin 2.7 Albumin/Globulin Ratio 1.6 Procalcitonin 0.12 TSH 0.82 Free T4 1.24 Urine Opiates Screen Urine Fentanyl Screen Ur Barbiturates Screen U Amphetamin/Meth Scrn U Benzodiazepines Scrn U Cocaine Metab Screen U Marijuana (THC) Screen 09/08/24 09/08/24 05:09 09:58 WBC RBC Hgb Hct MCV MCH MCHC RDW Std Deviation Plt Count Neut % (Auto) Lymph % (Auto) [place] % (Auto) Eos % (Auto) Baso % (Auto) Neut # (Auto) Lymph # (Auto) [place] # (Auto) Eos # (Auto) Baso # (Auto) Immature Gran # (Auto) Absolute Nucleated RBC Immature Gran % Nucleated RBC % PT INR APTT Sodium Potassium Chloride Carbon Dioxide Anion Gap BUN Creatinine Estim Creat Clear Calc eGFR BUN/Creatinine Ratio Glucose Calculated Osmolality Calcium Corrected Calcium Magnesium Total Bilirubin AST ALT Alkaline Phosphatase Troponin I < 0.020 B-Natriuretic Peptide Total Protein Albumin Globulin Albumin/Globulin Ratio Procalcitonin TSH Free T4 Urine Opiates Screen Positive A Urine Fentanyl Screen Negative Ur Barbiturates Screen Negative U Amphetamin/Meth Scrn Positive A U Benzodiazepines Scrn Negative U Cocaine Metab Screen Negative U Marijuana (THC) Screen Positive A Quality Measures Quality Measures none Assessment & Plan Assessment Current Active Medications: Generic Name Dose Route Start Last Admin Trade Name Freq PRN Reason Stop Dose Admin Acetaminophen 650 mg 09/08/24 04:04 Acetaminophen 325 Mg Tablet PO 10/08/24 04:03 Q6H PRN Fever >101.5 Albuterol/Ipratropium 3 ml 09/08/24 07:00 09/08/24 07:50 Albuterol/Ipratropium (Duoneb) Rt Breanna 3 Ml Nebu INH 10/08/24 06:59 3 ml Q6HRRT TASH Administration Enoxaparin Sodium 40 mg 09/08/24 09:00 09/08/24 08:19 Enoxaparin Sod Inj 40 Mg/0.4 Ml Syringe SC 09/22/24 08:59 40 mg QDAY TASH Administration Sodium Chloride 1,000 mls @ 75 mls/hr 09/08/24 04:15 09/08/24 05:11 Ns IV 10/08/24 04:14 75 mls/hr .[id number] TASH Administration Ceftriaxone Sodium 1,000 mg/ 50 mls @ 100 mls/hr 09/08/24 06:45 09/08/24 08:19 Sodium Chloride IV 09/15/24 06:44 100 mls/hr QDAY TASH Administration Azithromycin 500 mg/ Sodium 250 mls @ 250 mls/hr 09/09/24 09:00 Chloride IV 09/16/24 08:59 QDAY TASH Methylprednisolone Sodium Succinate 40 mg 09/08/24 09:00 09/08/24 08:13 Methylprednisolone Sod Succ 62.5 Mg/Ml 2ml Vial IVP 09/15/24 08:59 40 mg QDAY TASH Administration Nitroglycerin 0.4 mg 09/08/24 01:12 09/08/24 02:03 Nitroglycerin 0.4 Mg Subl Btl #25 SL 10/08/24 01:11 0.4 mg Q5MIN PRN Administration CHEST PAIN Pantoprazole Sodium 40 mg 09/08/24 09:00 09/08/24 08:16 Pantoprazole 40 Mg Tablet PO 10/08/24 08:59 40 mg QDAY TASH Administration Plan 53-year-old male with past medical history of COPD, hypertension, skin cancer, meth use, and active smoker was admitted to the hospital on 09/08/2024 due to chest pain and COPD exacerbation likely in the setting of pneumonia. #COPD exacerbation likely in the setting of #Community-acquired pneumonia ?Patient has wheezing bilateral on physical exam ? Chest x-ray was unremarkable, but chest/abdomen/pelvis CTA that showed opacities consistent with pneumonia and bilateral lower lungs. ? Patient is an active smoker Plan: ? Continue azithromycin and Rocephin [09/08/2024?] ? Continue Solu-Medrol [09/08/2024?] ? DuoNeb scheduled ?Nicotine patch ? Continue monitor #Chest pain #Prinzmetal's angina? ? Patient came in with substernal chest pain pressure-like in nature which lasted around all night and did not get relieved with nitroglycerin ?Patient stated that chest pain came in while he was resting, but does mention that when he exerts himself he does get some chest pressure as well. ? Troponins were negative x 3 and EKG was unremarkable ? DDx Prinzmetal's angina versus atypical chest pain Plan: ? Echo ordered ? Cardiology consulted, pursue recommendations ? Will continue to monitor #Hx of Hypertension ? Start patient losartan 5 mg daily #Polysubstance use #Meth use and marijuana use ? Consoled patient on avoiding these drugs Disposition: Pendign echo Diet: cardiac GI prophylaxis: protonix DVT prophylaxis: lovenox Code: Full Case disclosed with Attending Dr. Rena Mclaughlin PGY1
[2024-09-08] MEDS: LOSARTAN POTASSIUM 25 MG TABLET PO (14:25)
[2024-09-08 16:30] LABS: Troponin I < 0.002 ng/mL (0.0-0.045)
[2024-09-09] VITALS (7 sets, daily range): BP systolic 120–143; BP diastolic 92–108; PULSE 70–113; RESP 16–97; TEMP 36.3–36.8; O2SAT 93–99; BMI 19.5
--- NOTE | 2024-09-09 04:06 | ECHO_ITS ---
Transthoracic Echo Report Ht (in): 69 Wt (lb): 132 Exam Location: Echo Lab Status: Inpatient Rabbler: BRII Silva^^^^ Indications: Procedure Performed: BP: 130 / 71 HR: 115 Rhythm: Atrial fibrillation Technical Quality: Technically difficult study MEASUREMENTS (Male / Female) Normal Values 2D ECHO LV Diastolic Diameter PLAX 4.0 cm 4.2 - 5.9 / 3.9 - 5.3 cm LV Systolic Diameter PLAX 2.8 cm IVS Diastolic Thickness 0.8 cm 0.6 - 1.0 / 0.6 - 0.9 cm LVPW Diastolic Thickness 0.7 cm 0.6 - 1.0 / 0.6 - 0.9 cm LV Relative Wall Thickness 0.4 LVOT Diameter 1.5 cm Aortic Root Diameter 3.4 cm LA Systolic Diameter LX 2.2 cm 3.0 - 4.0 / 2.7 - 3.8 cm LV Ejection Fraction MOD 4C 61.1 % LV Cardiac Index MOD 4C 3614.7 cm?/min?m? LV Ejection Fraction 4C AL 61.8 % LV Cardiac Index 4C AL 3826.4 cm?/min?m? DOPPLER AV Peak Velocity 116.0 cm/s AV Peak Gradient 5.4 mmHg AV Mean Gradient 3.0 mmHg AV Velocity Time Integral 24.3 cm AI Peak Velocity 197.5 cm/s AI Peak Gradient 15.6 mmHg AI Pressure Half Time 996.0 ms LVOT Peak Velocity 86.3 cm/s LVOT Peak Gradient 3.0 mmHg LVOT Velocity Time Integral 24.0 cm LVOT Cardiac Index 2870.9 cm?/min?m? AV Area Cont Eq vti 1.7 cm? AV Area Cont Eq pk 1.3 cm? MV Area PHT 5.4 cm? Mitral E Point Velocity 96.1 cm/s Mitral A Point Velocity 54.8 cm/s Mitral E to A Ratio 1.8 LV E' Lateral Velocity 13.5 cm/s Mitral E to LV E' Lateral Ratio 7.1 LV E' Septal Velocity 16.6 cm/s Mitral E to LV E' Septal Ratio 5.8 TR Peak Velocity 269.8 cm/s TR Peak Gradient 29.1 mmHg PV Peak Velocity 93.3 cm/s PV Peak Gradient 3.5 mmHg RVOT Peak Velocity 52.5 cm/s FINDINGS Left Ventricle Normal left ventricular size, wall thickness, systolic function with no obvious regional wall motion abnormalities. The left ventricular ejection fraction is normal, estimated at 55-60%. There is grade I diastolic dysfunction of the left ventricle (impaired relaxation pattern). Right Ventricle The right ventricle is normal in size and systolic function. The estimated right ventricular systolic pressure, 35 mmHg. Left Atrium The left atrium is normal by two-dimensional, color flow and Doppler imaging with no structural abnormalities, no thrombus formation present. Right Atrium The right atrium is normal by two-dimensional imaging, color flow and Doppler imaging with no structural abnormalities, no thrombus formation present. Atrial Septum The interatrial septum appears normal with no evidence of a shunt. Aorta The aorta is normal by two-dimensional, color flow and Doppler interrogation. Mitral Valve Trace to mild mitral regurgitation. Mild mitral annular calcification. Aortic Valve Trace to mild aortic valve regurgitation. Tricuspid Valve There is mild tricuspid valve regurgitation. Pulmonic Valve Trivial pulmonic valve regurgitation. Vessels The pulmonary artery appears normal. The inferior vena cava pulmonary and hepatic veins appear normal. Pericardium The pericardium is normal by two-dimensional imaging. There is no significant pericardial effusion. CONCLUSIONS indication: chest pain Visual ectopy A-fib possible LV appears normal with EF of 55-60%. Diastolic Dysfunction I present. RV appears normal with RVSP of 35 mmHg. MV has trace to mild MR & mild MAC. AOV has trace- mild AI. TV has mild TR. Liza Stoddard (Electronically Signed) Final Date: 09 September 2024 13:45
[2024-09-09 06:03] LABS: Basophils % (Auto) 0 % (0-2.5); Eosinophils % (Auto) 0 % (0-10); Hematocrit 38.6 % (41.0-53.0); Hemoglobin 13.2 g/dL (13.5-16.0); Immature Granulocytes % (Auto) 0 % (0-0); Immature Granulocytes Auto 0.04 Thou/mm3 (0.00-0.00); Lymphocytes # (Auto) 1.7 Thou/mm3 (1.0-4.8); Lymphocytes % (Auto) 16 % (10-50); Mean Corpuscular HGB Conc 34.2 g/dl (31.0-37.0); Mean Corpuscular Hemoglobin 29.7 pg (25.0-35.0); Mean Corpuscular Volume 87 fL (80-100); Monocytes # (Auto) 0.9 Thou/mm3 (0.0-0.8); Monocytes % (Auto) 9 % (0-12); Neutrophils # (Auto) 7.8 Thou/mm3 (1.8-7.7); Neutrophils % (Auto) 74 % (37-80); Nucleated Red Blood Cell % 0 /100 WBC (0); Platelet Count 320 Thou/mm3 (140-440); RDW Standard Deviation 43.1 fL (35.1-43.9); Red Blood Count 4.45 Miln/mm3 (4.50-5.90); White Blood Count 10.5 Thou/mm3 (3.8-10.6)
[2024-09-09 06:22] LABS: Anion Gap 8 (7-16); BUN/Creatinine Ratio 8 Ratio (12-20); Blood Urea Nitrogen < 5 mg/dL (9-23); Calcium 9.3 mg/dL (8.3-10.6); Carbon Dioxide 29.6 mMol/L (20.0-31.0); Chloride 106 mMol/L (98-107); Creatinine (Component) 0.6 mg/dL (0.6-1.3); Estimated Creatinine Clearance 120.6 mL/min (>60); Glucose 82 mg/dL (74-106); Osmolality,Calculated 283 (275-295); Potassium 3.3 mMol/L (3.4-5.1); Sodium 144 mMol/L (136-145); eGFR > 60 See Note
[2024-09-09] MEDS: ALBUTEROL/IPRATROPIUM (Duoneb) RT SOL 3 ML NEBU INH (07:13)
[2024-09-09] MEDS: LORazepam 2 MG/ML VIAL 0.5 MG IVP (07:42)
[2024-09-09] MEDS: MethylPREDNISolone SOD SUCC 62.5 MG/ML 2ML VIAL 40 MG IVP (08:33)
[2024-09-09] MEDS: POTASSIUM CHLORIDE 20 mEq TABCR 40 MEQ PO (08:35)
[2024-09-09] MEDS: PANTOPRAZOLE 40 MG TABLET PO (08:36)
[2024-09-09] MEDS: ENOXAPARIN SOD INJ 40 MG/0.4 ML SYRINGE SC (08:36)
[2024-09-09] MEDS: SODIUM CHLORIDE 0.9% 1000 ML 1,000 ML 75 ML IV (08:36)
[2024-09-09] MEDS: cefTRIAXone 1,000 MG in SODIUM CHLORIDE 0.9% (Popper) 50 ML 100 MG IV (08:36)
[2024-09-09] MEDS: LOSARTAN POTASSIUM 25 MG TABLET 50 MG PO (09:50)
[2024-09-09] MEDS: AZITHROMYCIN INJ 500 MG in SODIUM CHLORIDE 0.9% 250 ML 250 ML 250 MG IV (09:51)
--- NOTE | 2024-09-09 10:35 | PC.SS ---
Patient is a 53 Year old male admitted for Chest pain. SS met with patient at bedside to review demographic information. Patient reports he lives at home with a friend. He informed SS that his step son,Thomas is his surrogate decision maker [phone]. Patient reports he does not utilize any source of DME to assist with ambulation. Patient's PCP is Luc Porras. Choice of pharmacy [facility]. At time of discharge patient wishes to return home. Family will provide transportation. Next of Kin: step sonThomas Discharge Plan: Home
--- NOTE | 2024-09-09 10:54 | ESDS_ITS ---
Planned Discharge Date 09/09/24 DS: Providers Provider Date of admission: 09/08/24 04:04 Primary care physician: Physician No Primary/Family Admitting Provider: Martin Easton MD Attending Provider on Admission: Khloe Chase MD Consults: 09/08/24 04:10 Consult to Cardiology Routine Comment: Consulting Provider: Doris Stoddard Attending Provider on DC: Khloe Chase MD Discharging Provider: Khloe Chase MD DS: Diagnosis Problem List Completed Was Problem List Reviewed/Reconciled?: Yes Hospital Course Hospital Course Hospital course: 53-year-old male with past medical history of COPD, hypertension, skin cancer, meth use, and active smoker was admitted to the hospital on 09/08/2024 due to chest pain and COPD exacerbation likely in the setting of pneumonia. In the ED patient came in with complaints of chest pain which was pressure-like in nature and did not subside with nitroglycerin. At this time patient was also found to have wheezing upon physical assessment by admitting team therefore he was placed on antibiotics and Solu-Medrol as his chest/abdomen/pelvis CTA also showed pneumonia. Cardiology was consulted given the patient's chest pain and stated that EKG was unremarkable and his troponins were also negative therefore he wanted to follow-up with echo. Echo was taken on the next day and was rpending television audio engineer read, will advice to follow-up outpatient for results. Patient admitted to using meth and marijuana prior to admission, therefore he was little bit jittery and anxious therefore gave Ativan 0.5 mg x 1 during his hospital stay given his anxiety. Throughout the hospital stay patient remained stable with no complaints. Advised the patient to decrease his water intake as during his hospital admission he was also drinking excessive amounts of water. At the time of discharge patient was stable enough to be discharged home. Discharge plan: Please follow-up with primary care physician within 1 week upon discharge. Please follow-up with your television audio engineer in 1 to 2 weeks after discharge, but if you do not have a television audio engineer please have your primary care physician refer you to 1. Please follow-up outpatient for echo results with television audio engineer. Continue taking azithromycin for 1 more day and Keflex for 3 more days. You have been started on Medrol pack please follow instructions as stated on medication. You have been started on losartan 50 mg daily You have been started on Advair for shortness of breath and wheezing. It is vital that you abstain from using any illicit drugs including methamphetamine and marijuana as this could be predisposing to your symptoms and caused multiple complications in the future. Please come back to the ER if symptoms persist or worsen Problems: #COPD exacerbation likely in the setting of #Community-acquired pneumonia #Chest pain #Polysubstance use #Meth use and marijuana use #Hx of Hypertension Status at Discharge Overall status at discharge: patient is progressing back to baseline Time Spent with Patient Time attestation: Total time spent providing and/or coordinating discharge services:>35 min Exam Vital Signs Temp Pulse Resp BP Pulse Ox O2 Del Method O2 Flow Rate 97.4 F 95 16 132/97 H 93 L Room Air 1 09/09/24 08:00 09/09/24 09:50 09/09/24 08:00 09/09/24 09:50 09/09/24 08:00 09/09/24 08:00 09/08/24 07:51 Narrative Exam General: A/O x3, no acute distress, anxious and restless Eyes: PERRL, EOMI. Anicteric, vision grossly intact. Ears: No ear pain, no ear discharge, Hearing grossly intact. Nose: No nasal discharge. Mouth/Throat: Dry mucous membranes, no redness, no lesions. Neck: Neck supple, non-tender, no cervical lymphadenopathy. Lungs: Wheezing TATIANA, No accessory muscle use. Cardio: Normal S1/S2, regular rhythm, no murmurs, no JVD Abdomen: Soft, non-tender, no palpable masses, peristalsis present, no guarding or rebound. Extremities: Symmetrical, no significant deformities, no peripheral edema , non-tender, peripheral pulses presents. Skin: No rashes, no lesions, warm to touch. Neuro: No focal neurological deficits. motor and sensory intact Psych: Anxious appearing and restless Discharge Plan Plan Patient Disposition: HOME (Self Care) Care Plan Goals: Please follow-up with primary care physician within 1 week upon discharge. Please follow-up with your television audio engineer in 1 to 2 weeks after discharge, but if you do not have a television audio engineer please have your primary care physician refer you to 1. Please follow-up outpatient for echo results with television audio engineer. Continue taking azithromycin for 1 more day and Keflex for 3 more days. You have been started on Medrol pack please follow instructions as stated on medication. You have been started on losartan 50 mg daily You have been started on Advair for shortness of breath and wheezing. It is vital that you abstain from using any illicit drugs including methamphetamine and marijuana as this could be predisposing to your symptoms and caused multiple complications in the future. Please come back to the ER if symptoms persist or worsen Prescriptions/Referrals Prescriptions/Med Rec: New azithromycin 500 mg tablet 500 mg PO QDAY 1 Days Qty: 1 0RF methylprednisolone [Medrol ([place])] 4 mg tablets,dose pack 4 mg PO QDAY Qty: 21 0RF cephalexin 500 mg capsule 500 mg PO BID 3 Days Qty: 6 0RF fluticasone propion-salmeterol [Advair HFA] 115-21 mcg/actuation HFA aerosol inhaler 2 puff inhalation BID Qty: 12 0RF losartan 50 mg tablet 50 mg PO QDAY 30 Days Qty: 30 0RF Continued pantoprazole [Protonix] 20 mg tablet,delayed release (DR/EC) 20 mg PO QDAY Qty: 30 1RF Discontinued albuterol sulfate 90 mcg/actuation aerosol powdr breath activated 2 inh inhalation Q6H PRN (Reason: shortness of breath or wheezing) Qty: 1 0RF hydrocodone-acetaminophen 10-325 mg tablet 1 tab PO Q6H MDD 3 PRN (Reason: pain) Qty: 10 0RF cyclobenzaprine 10 mg tablet 10 mg PO TID PRN (Reason: muscle spasm) Qty: 10 0RF ibuprofen 800 mg tablet 800 mg PO Q6H PRN (Reason: pain) Qty: 10 0RF hydrocodone-acetaminophen 5-325 mg tablet 1 tab PO TID MDD 3 tablets a day PRN (Reason: pain) Qty: 10 0RF acetaminophen 500 mg capsule 1,000 mg PO TID Qty: 30 0RF Referrals: No Primary/Family,Physician [Primary Care Provider] - Patient/Caregiver Discharge Instructions Other Discharge Activity Instructions:: Please follow-up with primary care physician within 1 week upon discharge. Please follow-up with your television audio engineer in 1 to 2 weeks after discharge, but if you do not have a television audio engineer please have your primary care physician refer you to 1. Please follow-up outpatient for echo results with television audio engineer. Continue taking azithromycin for 1 more day and Keflex for 3 more days. You have been started on Medrol pack please follow instructions as stated on medication. You have been started on losartan 50 mg daily You have been started on Advair for shortness of breath and wheezing. It is vital that you abstain from using any illicit drugs including methamphetamine and marijuana as this could be predisposing to your symptoms and caused multiple complications in the future. Please come back to the ER if symptoms persist or worsen Education Materials: COPD: Wheezing and Chest Tightness, Discharge Instructions: COPD Print Language: Croatian Stand Alone Forms: Simin Award Info., Patient Portal Info Letter Discharge Order Discharge Orders: Discharge (Routine); Ordered 09/09/24 Ordered By: Akua Armas Quality Discharge Quality Measures VTE prophylaxis
== END 2024-09-09 12:32 | disposition home or self-care (01) | DRG 140 ==
LOC: SERX 09-08 03:08 → SERHOLD 09-08 04:17 → S3NX 09-09 06:39
PROVIDERS: Physician Assistant; Student in an Organized Health Care Education/Training Program; Admitting Provider Internal Medicine; Emergency Provider Emergency Medicine; Visit Provider Internal Medicine
DX: J44.0 Chronic obstructive pulmonary disease with (acute) lower respiratory infection (principal); E78.5 Hyperlipidemia, unspecified; I10 Essential (primary) hypertension; F17.210 Nicotine dependence, cigarettes, uncomplicated; F12.90 Cannabis use, unspecified, uncomplicated; J18.9 Pneumonia, unspecified organism; F19.980 Other psychoactive substance use, unspecified with psychoactive substance-induced anxiety disorder; J44.1 Chronic obstructive pulmonary disease with (acute) exacerbation; Z91.148 Patient's other noncompliance with medication regimen for other reason; F15.90 Other stimulant use, unspecified, uncomplicated; R07.89 Other chest pain; Z85.828 Personal history of other malignant neoplasm of skin; Z11.52 Encounter for screening for COVID-19; Z86.16 Personal history of COVID-19
CPT/HCPCS: 36415; 71045; 71275; 74174; 80048; 80053; 80307; 83735; 83880; 84145; 84439; 84443; 84484; 85025; 85610; 85730; 87400; 87502; 87811; 90686; 93225; 93306; 94640; 94664; A4649; A9270; J0456; J0696; J1650; J2060; J2270; J2405; J2919; J3475; J7030; J7050; Q9967; J9060

== ENCOUNTER 2025-01-11 19:39 | Emergency (ER) | payer MEDICAID, SELFPAY ==
[2025-01-11 19:41] VITALS: BMI 21.2
[2025-01-11 20:02] VITALS: BP 166/104; PULSE 92; RESP 18; TEMP 36.8; O2SAT 95
--- NOTE | 2025-01-11 20:06 | PD.EDEYE ---
ED Eye Problem RME/HPI General Chief complaint: Eye Problems Stated complaint: FB IN RIGHT EYE Time Seen by Provider: 01/11/25 19:41 Source: patient, RN notes reviewed and old records reviewed Arrival date/time: 01/11/25 19:39 Mode of arrival: ambulatory Limitations: no limitations RME / HPI RME / HPI Narrative: 54yom presents to ED for right eye pain s/p injury today. Patient states he was working in his yard when something blew into his right eye, he's concerned it was a foxtail. Patient irrigated right eye at home without symptom improvement. Reports right eye redness and blurry vision. No other medications or treatments captain's assistant. Related Data Previous Rx's ?Medication ?Instructions ?Recorded pantoprazole 20 mg tablet,delayed 20 mg PO QDAY #30 tabs 01/08/23 release (Protonix) fluticasone propionate 115 2 puff inhalation BID #12 grams 09/09/24 mcg-salmeterol 21 mcg/actuation HFA inhaler (Advair HFA) methylprednisolone 4 mg tablets in 4 mg PO QDAY #21 tabs 09/09/24 a dose pack (Medrol ([place])) diclofenac sodium 0.1 % eye drops 1 drp ophthalmic (eye) Q6H PRN eye 01/11/25 pain #2.5 mL erythromycin 5 mg/gram (0.5 %) eye 1 applic ophthalmic (eye) Q6H 7 01/11/25 ointment days #3.5 grams ibuprofen 600 mg tablet 600 mg PO Q6H PRN pain #20 tabs 01/11/25 Allergies Allergy/AdvReac Type Severity Reaction Status Date / Time No Known Allergies Allergy Verified 01/11/25 19:40 Review of Systems Review of Systems Systems Reviewed: All systems reviewed, normal except as documented Eyes Eyes: Reports blurry vision (Right) and Reports irritation Comments: Reports eye pain, redness Past Medical History Past Medical History CARDIAC: Positive Hypertension Surgical History OTHER SURGICAL HX: Back surgery Social History SMOKING STATUS: Current every day smoker SUBSTANCE USE: does not use ALCOHOL: Never ED Exam General Limitations: Present no limitations General appearance: Present alert and in no apparent distress Head Head exam: Present atraumatic and normocephalic Eye Eye exam: Present PERRL, EOMI, conjunctival injection (right) and other (Eyelid everted, no FB); Absent periorbital swelling or periorbital tenderness ENT ENT exam: Present normal exam and mucous membranes moist Neck Neck exam: Present normal inspection and full ROM Chest Chest inspection: Present normal inspection and symmetric chest wall rise Respiratory Respiratory exam: Present normal lung sounds bilaterally; Absent respiratory distress Cardiovascular Cardiovascular exam: Present regular rate and normal rhythm Extremities Exam Extremities exam: Present normal inspection and full ROM Neurological Exam Neurological exam: Present alert and oriented X3 Psychiatric Psychiatric exam: Present normal affect and normal mood Skin Skin exam: Present warm, dry, intact and normal color Course Quality Measures none Orders Category Date Time Status Erythromycin Op Oint 0.5% Med 01/11/25 21:12 Discontinued 1 gm RIGHT EYE X1 ONE Fluorescein Sodium [[facility]] Med 01/11/25 20:06 Discontinued 1 mg RIGHT EYE X1 ONE HYDROcodone*/APAP 7.5/325 [[place] 7.5/325] Med 01/11/25 20:06 Discontinued 1 tab PO X1 ONE TETRACAINE Op Breanna 0.5% [Pontocaine Op Breanna 0.5%] Med 01/11/25 20:06 Discontinued 1 drop RIGHT EYE X1 ONE Vital Signs Vital signs: Vital Signs Temperature 98.3 F 01/11/25 20:02 Pulse Rate 92 01/11/25 20:02 Respiratory Rate 18 01/11/25 20:02 Blood Pressure 166/104 H 01/11/25 20:02 Pulse Oximetry (%) 95 01/11/25 20:02 Oxygen Delivery Method Room Air 01/11/25 20:02 PROCEDURES: Ahn Lamp Exam Right eye: Flourescein uptake:: Yes Ahn Lamp Findings: Corneal abrasion Additional comments: Conjunctivitis Eye MDM Narrative MDM Narrative:: 54yom presents to ED for right eye pain s/p injury today. Patient states he was working in his yard when something blew into his right eye, he's concerned it was a foxtail. Patient irrigated right eye at home without symptom improvement. Reports right eye redness and blurry vision. No other medications or treatments captain's assistant. Exam findings c/w corneal abrasion and conjunctivitis. No FB visualized. Will treat with antibiotic and nsaid eyedrops. Recommended close ophthalmology follow-up if symptoms persist or worsen. Stable for discharge, RTED precautions given. Patient data External records reviewed:: [facility] previous records (09/08/2024 admit for chest pain) Clinical information provided by:: patient Social determinants that could affect healthcare access:: other (specify) (Poor access to healthcare, unemployed) Patient has the following chronic illnesses:: Hypertension How is presenting disease/condition affected by chronic disease/condition?: exacerbated by Evaluation data The following diagnostics were reviewed and interpreted by me:: other (specify) (None) Lab and/or radiology exams considered but not ordered:: CT orbits: No history of eye trauma Interpretation Summary: na Medications / Prescriptions Medications or Prescriptions considered but not ordered:: None Medication administrations:: Medication Administration History Discontinued Medications Hydrocodone Bitart/Acetaminophen (Hydrocodone/[place] 7.5/325 Tablet) 1 tab PO X1 ONE Stop: 01/11/25 20:07 Last Admin: 01/11/25 20:51 Dose: 1 tab Documented By: Erythromycin (Erythromycin Op Oint 0.5% 1 Gm Packet) 1 gm RIGHT EYE X1 ONE Stop: 01/11/25 21:13 Last Admin: 01/11/25 21:22 Dose: 1 gm Documented By: Co-signed By: CVL Fluorescein Sodium (Fluorescein Sod 1 Mg Strp) 1 mg RIGHT EYE X1 ONE Stop: 01/11/25 20:07 Last Admin: 01/11/25 20:51 Dose: 1 mg Documented By: Tetracaine HCl (Tetracaine Pf Op Breanna 0.5% 4 Ml Drpette) 1 drop RIGHT EYE X1 ONE Stop: 01/11/25 20:07 Last Admin: 01/11/25 20:51 Dose: 1 drop Documented By: Above medications administered in ED Consultations Consultation(s) initiated? (list below): No Diagnosis Eye Problem Differential Diagnosis: corneal abrasion, conjunctivitis, acute iritis, hyphema, periorbital cellulitis, subconjunctival hemorrhage and corneal ulcer Most likely diagnosis given after review of the tests above:: Conjunctivitis, corneal abrasion Admission Indicated Admission indicated?: not indicated Admission Request Was there a request for admission?: No Disposition Plan Disposition Plan: Discharge Discharge Attestation Discharge Attestation: The patient and all family members were given an opportunity to ask questions and understood the discharge instructions. Discharge instructions specifically effects, indications for sooner follow up or return to the emergency department, and the expected course of current diagnosis. Patient condition: Stable Discharge Plan Plan Patient Disposition: HOME (Self Care) Patient condition on transfer: Stable Prescriptions/Referrals Prescriptions/Med Rec: New erythromycin 5 mg/gram (0.5 %) ointment 1 applic ophthalmic (eye) Q6H 7 Days Qty: 3.5 1RF diclofenac sodium 0.1 % drops 1 drp ophthalmic (eye) Q6H PRN (Reason: eye pain) Qty: 2.5 0RF ibuprofen 600 mg tablet 600 mg PO Q6H PRN (Reason: pain) Qty: 20 0RF No Action pantoprazole [Protonix] 20 mg tablet,delayed release (DR/EC) 20 mg PO QDAY Qty: 30 1RF methylprednisolone [Medrol ([place])] 4 mg tablets,dose pack 4 mg PO QDAY Qty: 21 0RF fluticasone propion-salmeterol [Advair HFA] 115-21 mcg/actuation HFA aerosol inhaler 2 puff inhalation BID Qty: 12 0RF Referrals: Luc Porras MD [Primary Care Provider] - In 1 week Problem List Clinical Impression: Abrasion of right cornea, Conjunctivitis of right eye Patient/Caregiver Discharge Instructions Education Materials: ED Corneal Abrasion Print Language: Welsh Stand Alone Forms: Simin Award Info., Patient Portal Info Letter PA/TELEPHONE SWITCHBOARD OPERATOR Supervising Physician PA/TELEPHONE SWITCHBOARD OPERATOR Supervising Physician: Patricia
[2025-01-11] MEDS: HYDROcodone/APAP 7.5/325 TABLET 1 TAB PO (20:51)
[2025-01-11] MEDS: FLUORESCEIN SOD 1 MG STRP RIGHT EYE (20:51)
[2025-01-11] MEDS: TETRACAINE PF OP SOL 0.5% 4 ML DRPETTE 1 DROP RIGHT EYE (20:51)
[2025-01-11] MEDS: Erythromycin Op Oint 0.5% 1 GM PACKET RIGHT EYE (21:22)
== END 2025-01-11 21:35 | disposition home or self-care (01) ==
PROVIDERS: Emergency Provider Emergency Medicine; PCP Family Medicine
DX: H10.9 Unspecified conjunctivitis (principal); S05.01XA Injury of conjunctiva and corneal abrasion without foreign body, right eye, initial encounter; X58.XXXA Exposure to other specified factors, initial encounter
CPT/HCPCS: 99283; A9270

== ENCOUNTER 2025-04-26 16:06 | Emergency (ER) | payer MEDICAID, SELFPAY ==
[2025-04-26 17:09] VITALS: BP 152/106; PULSE 93; RESP 20; TEMP 36.7; O2SAT 97; BMI 19.9
--- NOTE | 2025-04-26 17:17 | XR_ITS ---
Examination: CT brain head without contrast. 2-D sagittal coronal reconstructions Date and time of exam: April 26, 2025, 1755 hours INDICATIONS: Injury to the head today with scalp hematoma and head pain CTDI: vol (mGy): 49.9 DLP: (mGycm): 1048 Technique: Multiple CT axial sections of the brain have been obtained, 5 mm slice thickness. Contrast has not been administered. 2-D sagittal, coronal reconstructions have been obtained Low dose protocols were performed. One or more of the following dose reduction techniques were used; automated exposure control, adjustment of the mA and/or KV according to patient size, use of iterative reconstruction technique. Findings: No significant ventricular enlargement. Intra-axial or extra-axial hemorrhage density is not seen. No mass effect or midline shift Basal cisterns are not remarkable. Fourth ventricle is midline. Cranial vault intact. Left frontal scalp hematoma Impression: Negative for acute hemorrhage, mass effect or midline shift
--- NOTE | 2025-04-26 18:56 | PD.EDHEAD ---
ED Head Injury RME/HPI General Chief complaint: Head Injury Stated complaint: Hit in the head, loss of LOC Time Seen by Provider: 04/26/25 17:10 Arrival date/time: 04/26/25 16:06 Limitations: no limitations RME / HPI RME / HPI Narrative: 54-year-old male states he was helping unload something in a trailer and sustained an injury to his head. Not on blood thinners. Did not lose consciousness. However concerned about the size of the swelling and bruising that he has to the left. States he feels a little dizzy but no vomiting. No other concerns at this time. Related Data Previous Rx's ?Medication ?Instructions ?Recorded pantoprazole 20 mg tablet,delayed 20 mg PO QDAY #30 tabs 01/08/23 release (Protonix) fluticasone propionate 115 2 puff inhalation BID #12 grams 09/09/24 mcg-salmeterol 21 mcg/actuation HFA inhaler (Advair HFA) methylprednisolone 4 mg tablets in 4 mg PO QDAY #21 tabs 09/09/24 a dose pack (Medrol ([place])) diclofenac sodium 0.1 % eye drops 1 drp ophthalmic (eye) Q6H PRN eye 01/11/25 pain #2.5 mL erythromycin 5 mg/gram (0.5 %) eye 1 applic ophthalmic (eye) Q6H 7 01/11/25 ointment days #3.5 grams ibuprofen 600 mg tablet 600 mg PO Q6H PRN pain #20 tabs 01/11/25 Allergies Allergy/AdvReac Type Severity Reaction Status Date / Time No Known Allergies Allergy Verified 04/26/25 16:11 Review of Systems Review of Systems Systems Reviewed: All systems reviewed, normal except as documented ENT Ears, Nose, Mouth, and Throat: Reports as per HPI Neurologic Neurologic: Reports as per HPI ED Exam General Limitations: Present no limitations General appearance: Present alert and in no apparent distress Head Head exam: Present other (3 cm hematoma to left temporal area) Eye Eye exam: Present normal appearance, PERRL and EOMI ENT ENT exam: Present normal exam, normal oropharynx and mucous membranes moist Neck Neck exam: Present normal inspection, full ROM and trachea midline Chest Chest inspection: Present normal inspection and symmetric chest wall rise Respiratory Respiratory exam: Present normal lung sounds bilaterally Cardiovascular Cardiovascular exam: Present regular rate, normal rhythm and normal heart sounds Abdominal Exam Abdominal exam: Present soft and normal bowel sounds Extremities Exam Extremities exam: Present normal inspection and full ROM Back Exam Back exam: Present normal inspection and full ROM Neurological Exam Neurological exam: Present alert, oriented X3 and CN II-XII intact Psychiatric Psychiatric exam: Present normal affect and normal mood Skin Skin exam: Present warm, dry, intact and normal color Course Quality Measures none Orders Category Date Time Status CT head/brain wo con Stat Exams 04/26/25 17:17 Completed HYDROcodone*/APAP 5/325 [[place] 5/325] Med 04/26/25 18:56 Discontinued 1 tab PO X1 ONE Vital Signs Vital signs: Vital Signs Temperature 98.1 F 04/26/25 17:09 Pulse Rate 93 04/26/25 17:09 Respiratory Rate 20 04/26/25 17:09 Blood Pressure 152/106 H 04/26/25 17:09 Pulse Oximetry (%) 97 04/26/25 17:09 Oxygen Delivery Method Room Air 04/26/25 17:09 Head Injury MDM Narrative MDM Narrative:: 54-year-old male with head injury CT scan was negative. Gave dose of medication for here advised follow-up with PCP return to ER symptoms worsen Patient data External records reviewed:: [facility] previous records Clinical information provided by:: patient Social determinants that could affect healthcare access:: other (specify) (No PCP capability to do CT scan on the week) Patient has the following chronic illnesses:: Hypertension How is presenting disease/condition affected by chronic disease/condition?: uneffected by Evaluation data The following diagnostics were reviewed and interpreted by me:: radiology exam(s) Lab and/or radiology exams considered but not ordered:: All imaging that was considered was ordered Interpretation Summary: CT scan of head was normal Medications / Prescriptions Medications or Prescriptions considered but not ordered:: Narcotics for home were considered however given injury unlikely warranted Medication administrations:: Medication Administration History Discontinued Medications Hydrocodone Bitart/Acetaminophen (Hydrocodone/[place] 5/325 Tablet) 1 tab PO X1 ONE Stop: 04/26/25 18:57 Last Admin: 04/26/25 19:03 Dose: 1 tab Documented By: GUILLERMO See above Consultations Consultation(s) initiated? (list below): No Diagnosis Differential diagnosis head injury: concussion without loss of consciousness, epidural hematoma, closed head injury, subarachnoid hematoma and postconcussion syndrome Most likely diagnosis given after review of the tests above:: Facial trauma Contusions Admission Indicated Admission indicated?: not indicated Admission Request Was there a request for admission?: No Disposition Plan Disposition Plan: Discharge Discharge Attestation Discharge Attestation: The patient and all family members were given an opportunity to ask questions and understood the discharge instructions. Discharge instructions specifically effects, indications for sooner follow up or return to the emergency department, and the expected course of current diagnosis. Patient condition: Stable Discharge Plan Plan Patient Disposition: HOME (Self Care) Discharge Disposition comment: Follow-up PCP in 2 to 3 days Prescriptions/Referrals Prescriptions/Med Rec: No Action pantoprazole [Protonix] 20 mg tablet,delayed release (DR/EC) 20 mg PO QDAY Qty: 30 1RF methylprednisolone [Medrol ([place])] 4 mg tablets,dose pack 4 mg PO QDAY Qty: 21 0RF fluticasone propion-salmeterol [Advair HFA] 115-21 mcg/actuation HFA aerosol inhaler 2 puff inhalation BID Qty: 12 0RF erythromycin 5 mg/gram (0.5 %) ointment 1 applic ophthalmic (eye) Q6H 7 Days Qty: 3.5 1RF diclofenac sodium 0.1 % drops 1 drp ophthalmic (eye) Q6H PRN (Reason: eye pain) Qty: 2.5 0RF ibuprofen 600 mg tablet 600 mg PO Q6H PRN (Reason: pain) Qty: 20 0RF Referrals: Zenon Rea PA-C [Primary Care Provider] - In 1 week Problem List Clinical Impression: Closed head injury, Hematoma Patient/Caregiver Discharge Instructions Education Materials: ED Head Injury (Adult) Print Language: Malagasy Stand Alone Forms: [facility] Award Info., Patient Portal Info Letter PA/RICHARD Supervising Physician PA/REGISTERED PHYSICAL THERAPIST Supervising Physician: Dr. Aguirre
[2025-04-26] MEDS: HYDROcodone/APAP 5/325 TABLET 1 TAB PO (19:03)
== END 2025-04-26 19:06 | disposition home or self-care (01) ==
PROVIDERS: Emergency Provider Physician Assistant; PCP Family Medicine
DX: S00.93XA Contusion of unspecified part of head, initial encounter (principal); W22.8XXA Striking against or struck by other objects, initial encounter
CPT/HCPCS: 70450; 99283; A9270